=== PATIENT | female | born 1955 | race Caucasian/White ===

== ENCOUNTER → 2024-08-02 15:13 | Outpatient (REF) | payer MEDICARE, OTHER, SELFPAY | LOC: HWRAD 15:13 | PROVIDERS: ATTENDING PHYSICIAN Physician Assistant Medical; FAMILY PHYSICIAN Physician Assistant Medical | DX: M95.8 Other specified acquired deformities of musculoskeletal system (principal) | CPT/HCPCS: 73000 ==

== ENCOUNTER → 2024-08-16 15:18 | Outpatient (REF) | payer MEDICARE, OTHER, SELFPAY | LOC: HWRAD 15:18 | PROVIDERS: ATTENDING PHYSICIAN Physician Assistant Medical | DX: M95.8 Other specified acquired deformities of musculoskeletal system (principal) | CPT/HCPCS: 71250 ==